=== PATIENT | female | born 1955 | race Two or more races ===

== ENCOUNTER 2019-07-22 06:18 | Day surgery (SDC) | payer BC ==
[~2019-07-22] VITALS: Ht 170.2 cm; Wt 89.2 kg
[~2019-07-22 06:18] MED LIST: AMLO5 PO; ASPI325 PO; ASPI325EC PO; ASPI81EC PO; CITA20 PO; DIAZ10 PO; DICL25ER PO; DOC250 PO; FURO40 PO; FURO80 PO; Ferrous Sulfat325 M2 PO; GABA100 PO; HYDACE10B PO; HYDCHL12.5 PO; K-Dur20 MEQ; LISHYD2012 PO; LISI20 PO; OXYACE5T PO; Omeprazole20 M1 PO; POTA10T PO; PRAV20 PO; Percocet 5-3251 EACH PO; Prilosec20 MG PO; SULI150 PO; Senna8.6 MG PO; TRAM50 PO; ZESTORETIC 20-121 EA PO
[2019-07-22] MEDS ORDERED: Adipex-P37.5 M1 PO (07:08)
[2019-07-22] MEDS ORDERED: Calcium-Magnes1 EAC6 PO (07:08)
[2019-07-22] MEDS ORDERED: ZESTORETIC 20-121 EA PO (07:08)
[2019-07-22] MEDS ORDERED: Senna8.6 MG PO (07:09)
[2019-07-22] MEDS ORDERED: DOCU100 PO (07:09)
--- NOTE | 2019-07-22 09:15 | NUR ---
07/22/19 0915 KulwinderRenata L DAUGHTER IS AT CHAIRSIDE, PT'S NAUSEA HAS RESOLVED AND SHE IS EATING CRACKERS, SHE HAS BEEN MEDICATED FOR SURGICAL SITE PAIN (SEE VS RECORD FOR DOSES AND TIMES).
== END 2019-07-22 09:54 | disposition home or self-care (01) ==
LOC: ORSCSDS 06:18
PROVIDERS: Orthopaedic Surgery
PROC: 0LX50ZZ Transfer Right Lower Arm and Wrist Tendon, Open Approach (ICD-10-PCS; principal; 2019-07-22 07:30)
PROC: 0LX70ZZ Transfer Right Hand Tendon, Open Approach (ICD-10-PCS; principal; 2019-07-22 07:30)
PROC: 01N50ZZ Release Median Nerve, Open Approach (ICD-10-PCS; principal; 2019-07-22 07:30)
DX: G56.01 Carpal tunnel syndrome, right upper limb (principal); M18.11 Unilateral primary osteoarthritis of first carpometacarpal joint, right hand; I10 Essential (primary) hypertension; G47.33 Obstructive sleep apnea (adult) (pediatric); Z79.899 Other long term (current) drug therapy
CPT/HCPCS: A9270-GY; C1713; J0690; J1100; J1885; J2250; J2405; J2704; J2765; J2795; J3010; J7120

== ENCOUNTER 2022-08-17 08:18 | Day surgery (SDC) | payer MEDICARE, BC ==
[~2022-08-17] VITALS: Ht 172.7 cm; Wt 99.5 kg
[~2022-08-17 08:18] MED LIST changes: +ACETAMINOPHEN PM PO; +Adipex-P37.5 M1 PO; +Calcium-Magnes1 EAC6 PO; +DOCU100 PO; +GABA300 PO; +PANT40 PO; +VITAMIN B122500 MC1 PO
== END 2022-08-17 10:36 | disposition home or self-care (01) ==
LOC: ORSCSDS 08:18
PROVIDERS: Surgery
PROC: 0DB68ZX Excision of Stomach, Via Natural or Artificial Opening Endoscopic, Diagnostic (ICD-10-PCS; principal; 2022-08-17 09:45)
PROC: 0DB98ZX Excision of Duodenum, Via Natural or Artificial Opening Endoscopic, Diagnostic (ICD-10-PCS; principal; 2022-08-17 09:45)
DX: K21.9 Gastro-esophageal reflux disease without esophagitis (principal); R10.11 Right upper quadrant pain; G47.33 Obstructive sleep apnea (adult) (pediatric); I12.9 Hypertensive chronic kidney disease with stage 1 through stage 4 chronic kidney disease, or unspecified chronic kidney disease; E78.5 Hyperlipidemia, unspecified; N18.9 Chronic kidney disease, unspecified; K44.9 Diaphragmatic hernia without obstruction or gangrene; K29.70 Gastritis, unspecified, without bleeding; F41.9 Anxiety disorder, unspecified; E66.9 Obesity, unspecified; Z68.38 Body mass index [BMI] 38.0-38.9, adult; Z79.899 Other long term (current) drug therapy
CPT/HCPCS: 88305; 88341; 88342; J0330; J0461; J2405; J2704; J7120

== ENCOUNTER 2022-11-10 06:51 | Day surgery (SDC) | payer MEDICARE, BC ==
[~2022-11-10] VITALS: Ht 170.2 cm; Wt 100.4 kg
[~2022-11-10 06:51] MED LIST changes: +Lisinopril-Hct1 EAC4 PO; +OMEP20ER PO; +PEPCID20 MG PO; +SUCR1 PO; +ZYRTEC10 M2 PO
--- NOTE | 2022-11-10 12:05 | NUR ---
Discharge instructions reviewed with patient. Patient verbalizes understanding. Copy given to patient to take home. Dressing to procedure site clean, dry, intact with no visible drainage, swelling, erythema or bruising noted. Discharged via wheelchair to private car for ride home.
== END 2022-11-10 12:06 | disposition home or self-care (01) ==
LOC: ORSCMMR 06:51 → ORD 08:45 → ORSCMMR 08:45
PROVIDERS: Surgery
PROC: 0FT44ZZ Resection of Gallbladder, Percutaneous Endoscopic Approach (ICD-10-PCS; principal; 2022-11-10 10:00)
DX: K80.10 Calculus of gallbladder with chronic cholecystitis without obstruction (principal); I12.9 Hypertensive chronic kidney disease with stage 1 through stage 4 chronic kidney disease, or unspecified chronic kidney disease; N18.9 Chronic kidney disease, unspecified; G47.33 Obstructive sleep apnea (adult) (pediatric); K21.9 Gastro-esophageal reflux disease without esophagitis; Z79.899 Other long term (current) drug therapy
CPT/HCPCS: 74300; 88304; A9270; C1729; J0690; J1100; J1885; J2405; J2704; J2795; J3010; J7120

== ENCOUNTER → 2023-02-28 | Outpatient (CLI) | payer MEDICARE, BC | END | disposition home or self-care (01) | LOC: LAB SHORT 09:30 → LAB 09:30 | DX: L82.1 Other seborrheic keratosis (principal) | CPT/HCPCS: 88305 ==

== ENCOUNTER → 2024-01-02 | Outpatient (CLI) | payer MEDICARE, BC ==
[2024-01-02 09:42] LABS: BASOPHILS ABSOLUTE AUTO 0.04 K/mm3 (0.00-0.23); BASOPHILS PERCENT AUTO 1 % (0-2); EOSINOPHILS ABSOLUTE AUTO 0.07 K/mm3 (0.00-0.68); EOSINOPHILS PERCENT AUTO 2 % (0-6); Hematocrit 37.3 % (33.0-51.0); Hemoglobin 12.4 g/dL (11.5-16.0); IMMATURE GRAN ABSOLUTE AUTO 0.01 K/mm3 (0.00-0.10); IMMATURE GRAN PERCENT AUTO 0 % (0-1); LYMPHOCYTES ABSOLUTE AUTO 1.43 K/mm3 (0.84-5.20); LYMPHOCYTES PERCENT AUTO 43 % (21-46); MONOCYTES ABSOLUTE AUTO 0.22 K/mm3 (0.16-1.47); MONOCYTES PERCENT AUTO 7 % (4-13); Mean Corpuscular HGB 29.6 pg (26.0-34.0); Mean Corpuscular HGB Conc 33.2 g/dL (31.5-36.5); Mean Corpuscular Volume 89 fL (80-100); Mean Platelet Volume 9.4 fL (9.1-12.4); NEUTROPHILS ABSOLUTE AUTO 1.53 K/mm3 (1.96-9.15); NEUTROPHILS PERCENT AUTO 46 % (41-73); Platelet Count 240 K/mm3 (150-400); RDW Coefficient Variation 14.1 % (11.7-14.2); RDW Standard Deviation 45.6 fL (35.1-46.3); Red Blood Cell Count 4.19 M/mm3 (3.80-5.20)
[2024-01-02 10:18] LABS: Alanine Aminotransfer (ALT/SGP 12 U/L (12-78); Albumin, Blood 3.8 g/dL (3.4-5.0); Albumin/Globulin Ratio 1.2 (0.8-1.8); Alk Phos 69 U/L (50-136); Anion Gap 0 mmol/L (6-16); Aspartate Aminotrans (AST/SGOT 14 U/L (12-37); Bilirubin, Total 0.5 mg/dL (0.1-1.0); Blood Urea Nitrogen 16 mg/dL (8-24); Bun/Creatinine Ratio 18.4 (12.0-20.0); CHOL/HDL RATIO 1.9; CO2, Blood 31 mmol/L (21-32); Calcium, Blood 9.4 mg/dL (8.5-10.1); Chloride, Blood 108 mmol/L (98-108); Cholesterol 144 mg/dL (50-200); Creatinine, Blood 0.87 mg/dL (0.40-1.00); Globulin, Blood 3.1 g/dL (2.2-4.0); Glomerular Filtration Rate 73 (60-); Glucose, Blood 87 mg/dL (70-99); HDL Cholesterol 75 mg/dL (>39); LDL/HDL RATIO 0.8; Low Density Lipoprotein Chol 57 mg/dL (0-110); Potassium, Blood 3.7 mmol/L (3.5-5.5); Sodium, Blood 139 mmol/L (136-145); Total Protein, Blood 6.9 g/dL (6.4-8.2); Triglycerides 62 mg/dL (30-160); Very Low Density Lipoprot Chol 12 mg/dL (6-32)
== END ==
LOC: LAB SHORT 07:51
PROVIDERS: Family Medicine
DX: I12.9 Hypertensive chronic kidney disease with stage 1 through stage 4 chronic kidney disease, or unspecified chronic kidney disease (principal); N18.2 Chronic kidney disease, stage 2 (mild); D63.1 Anemia in chronic kidney disease
CPT/HCPCS: 36415; 80053; 80061; 85025

== ENCOUNTER 2024-10-06 09:07 | Day surgery (SDC) | payer MEDICARE, BC ==
[~2024-10-06] VITALS: Ht 172.7 cm; Wt 87.4 kg
[2024-10-06] VITALS (16 sets, daily range): BP systolic 134–188; BP diastolic 68–86
[~2024-10-06 09:07] MED LIST changes: +CeFAZolin Sodium 2,000 MG VIAL ONE; +CeFAZolin Sodium 2,000 MG in NS 100 ML IV SCH; +LOSA50 PO; +Lactated Ringer's 1,000 ML IV SCH
[2024-10-06] MEDS ORDERED: Acetaminophen 500 MG Tab PO ONE (09:20)
[2024-10-06] MEDS ORDERED: Lidocaine HCl 2% 20 ML MDV ONE (09:33)
[2024-10-06] MEDS ORDERED: Ondansetron HCl 2 MG / ML 2ML Vial ONE (09:33)
[2024-10-06] MEDS ORDERED: Metoclopramide HCl 5MG / ML 2ML Vial ONE (09:33)
[2024-10-06] MEDS ORDERED: propofoL 20 ML IV ONE (09:34)
[2024-10-06] MEDS ORDERED: FentaNYL Citrate 50 MCG/ML 2 ML Injection ONE ×2 (09:37→11:53)
--- NOTE | 2024-10-06 09:46 | NUR ---
History, Chart, Medications and Allergies reviewed before start of procedure. Pre-Op teaching done. Pt verbalizes understanding. Patient confirms NPO status and agrees with scheduled surgery. PT BELONGINGS PLACED UNDER BED. GLASSES PLACED IN PACU. DENTURE CUP SENT WITH CHANGE BOOTH ATTENDANT, PT WANTS "TO KEEP DENTURES IN UNTIL LAST MINUTE."
[2024-10-06] MEDS ORDERED: Midazolam HCl 1MG / ML 2ML Vial IV ONE (09:50)
[2024-10-06] MEDS ORDERED: Lidocaine 1%-Epineph 1:100000 20 ML MDV INJ ONE ×2 (10:21)
[2024-10-06] MEDS ORDERED: Sugammadex Sodium 200 MG/2ML SDV (100 MG/ML) ONE (11:11)
[2024-10-06] MEDS ORDERED: DiphenhydrAMINE HCL 25 MG Cap PO PRN (11:35)
[2024-10-06] MEDS ORDERED: Naloxone HCl 0.4MG / ML 1ML Vial IV PRN (11:35)
[2024-10-06] MEDS ORDERED: OxyCODONE HCL 5 MG TAB PO PRN (11:35)
[2024-10-06] MEDS ORDERED: Simethicone 80 MG Chew PO PRN (11:35)
[2024-10-06] MEDS ORDERED: Acetaminophen 500 MG Tab PO PRN (11:35)
[2024-10-06] MEDS ORDERED: Ondansetron HCl 2 MG / ML 2ML Vial IV PRN (11:35)
[2024-10-06] MEDS ORDERED: FLU VACC TS2024-25(6MOS UP)/PF 45 MCG/0.5 ML SYRINGE IM SCH (11:40)
[2024-10-06] MEDS ORDERED: Metoclopramide HCl 5MG / ML 2ML Vial IV PRN (11:40)
[2024-10-06] MEDS ORDERED: HYDROmorphone HCl/Pf 1MG SYR IV PRN (11:40)
[2024-10-06] MEDS ORDERED: Ondansetron 4 MG TAB PO PRN (11:40)
[2024-10-06] MEDS ORDERED: Metoclopramide HCl 10 MG Tab PO PRN (11:40)
[2024-10-06] MEDS ORDERED: Lactated Ringer's 1,000 ML IV SCH (11:45)
[2024-10-06] MEDS ORDERED: Ketorolac Tromethamine 15mg Vial IV PRN (12:05)
[2024-10-06] MEDS ORDERED: Prochlorperazine Edisylate 10 mg Vial ONE (12:09)
--- NOTE | 2024-10-06 12:47 | NUR ---
ARRIVAL TO UNIT PATIENT TRANSFERRED TO UNIT FROM PACU AT APPROX 1235. PATIENT ALERT AND ORIENTED X4. COMMUNICATING NEEDS EFFECTIVELY. VSS. PLACED ON 2L VIA NC SATs MAINTAINING 87-89% ON ROOM AIR. S/P A & P WITH SLING - DENIES PAIN BUT DOES REPORT A "BURNING" SENSATION. ICE PACK IN PLACE. DENIES NAUSEA - SMALL SNACK AND WATER PROVIDED. LR INFUSING PER EMAR. SUE CATHETER IN PLACE. CALL LIGHT IN REACH. FAMILY AT BEDSIDE.
[2024-10-06] MEDS ORDERED: ACET500 PO (14:34)
[2024-10-06] MEDS ORDERED: IBUP600 PO (14:35)
[2024-10-06] MEDS ORDERED: OXAYDO5 M2 PO (14:35)
--- NOTE | 2024-10-06 14:55 | NUR ---
DISCHARGE NOTE NO ACUTE CHANGES SINCE PREVIOUS DOCUMENTATION. VSS. SBP 140s-160s. PATIENT W/ HX OF HTN - TAKES PO NORVASC AND COZAAR FOR MANAGEMENT. DENIES CHEST PAIN, PRESSURE. TOLERATING ROOM AIR, SATs >90%. RR EVEN, UNLABORED. S/P A&P WITH SLING - PAIN TOLERABLE, TOLERATING PO INTAKE. SUE REMOVED - VOIDING. POST VOID BLADDER SCAN SHOWING <100ML. MINIMAL VAGINAL BLEEDING - PAD IN PLACE. DC ORDERED BY MD RICHTER. IV REMOVED. DC EDUCATION PROVIDED - PATIENT STATES UNDERSTANDING. PATIENT TRANSFERRED TO PERSONAL VEHICLE VIA WHEELCHAIR AT APPROX 1455. PERSONAL BELONGINGS WITH PATIENT.
[2024-10-06] MEDS ORDERED: Losartan Potassium 50 MG Tab PO SCH (21:00)
[2024-10-07] MEDS ORDERED: Pantoprazole Sodium 40 MG Tab PO SCH (06:00)
[2024-10-07] MEDS ORDERED: AmLODIPine Besylate 5 MG Tab PO SCH (09:00)
[2024-10-07] MEDS ORDERED: Loratadine 10 MG Tab PO SCH (09:00)
== END 2024-10-06 15:08 | disposition home or self-care (01) ==
LOC: ORSCMMR 09:07 → ORD 11:45 → SURS 12:28 → ORSCMMR 15:08
DX: N81.89 Other female genital prolapse (principal); N39.3 Stress incontinence (female) (male); I10 Essential (primary) hypertension; Z79.899 Other long term (current) drug therapy
CPT/HCPCS: A9270; C1771; J0690; J0780; J2250; J2405; J2704; J2765; J3010; J7120

== ENCOUNTER → 2025-01-07 | Outpatient (CLI) | payer MEDICARE, BC ==
[~2025-01-07] MED LIST changes: +ACET500 PO; -CeFAZolin Sodium 2,000 MG VIAL ONE; -CeFAZolin Sodium 2,000 MG in NS 100 ML IV SCH; +IBUP600 PO; -Lactated Ringer's 1,000 ML IV SCH; +OXAYDO5 M2 PO
[2025-01-07 10:31] LABS: Source, Urine Clean Catch
[2025-01-07 13:07] LABS: Appearance, Urine Clear (Clear); Bilirubin, Urine Neg (Neg); Blood, Urine Neg (Neg); Color, Urine Yellow (P-Yellow); Glucose Qualitative, Urine Neg (Neg); Ketones, Urine Neg (Neg); Leukocyte Esterase, Urine 1+ (Neg); Nitrite, Urine Neg (Neg); Protein, Urine Neg (Neg); Specific Gravity, Urine 1.015 (1.003-1.022); Urobilinogen, Urine NORM (Normal); pH, Urine 6.5 (5.0-8.0)
[2025-01-07 13:33] LABS: Hyaline Casts 0-2 /lpf (0-2); Red Blood Cells, Urine 0-2 /hpf (0-2); Squamous Epithelial Cells Rare /hpf (Few); White Blood Cells, Urine 0-2 /hpf (0-5)
[2025-01-07 13:34] LABS: Bacteria Rare /hpf; Mucus Light (0-Heavy)
== END ==
LOC: LAB SHORT 10:28 → LAB 10:28
PROVIDERS: Obstetrics & Gynecology
DX: R32 Unspecified urinary incontinence (principal)
CPT/HCPCS: 81001; 87086

== ENCOUNTER → 2025-01-14 | Outpatient (CLI) | payer MEDICARE, BC ==
[2025-01-14 09:11] LABS: Source, Urine Clean Catch
[2025-01-14 10:45] LABS: Appearance, Urine Clear (Clear); Bilirubin, Urine Neg (Neg); Blood, Urine 1+ (Neg); Color, Urine Yellow (P-Yellow); Glucose Qualitative, Urine Neg (Neg); Ketones, Urine Neg (Neg); Leukocyte Esterase, Urine 1+ (Neg); Nitrite, Urine Neg (Neg); Protein, Urine 1+ (Neg); Urobilinogen, Urine NORM (Normal)
[2025-01-14 11:00] LABS: Mucus Light (0-Heavy); Squamous Epithelial Cells Mod /hpf (Few)
[2025-01-14 11:01] LABS: Bacteria Many /hpf
== END ==
LOC: LAB SHORT 09:08 → LAB 09:08
PROVIDERS: Obstetrics & Gynecology
DX: R32 Unspecified urinary incontinence (principal)
CPT/HCPCS: 81001; 87086

== ENCOUNTER 2025-08-02 03:11 | Emergency (ER) | payer MEDICARE, BC ==
[~2025-08-02] VITALS: Ht 172.7 cm; Wt 84.4 kg
[2025-08-02 03:57] VITALS: BP 172/104
[2025-08-02 04:53] LABS: BASOPHILS ABSOLUTE AUTO 0.05 K/mm3 (0.00-0.23); BASOPHILS PERCENT AUTO 1 % (0-2); EOSINOPHILS ABSOLUTE AUTO 0.08 K/mm3 (0.00-0.68); EOSINOPHILS PERCENT AUTO 1 % (0-6); Hematocrit 37.2 % (33.0-51.0); Hemoglobin 12.6 g/dL (11.5-16.0); IMMATURE GRAN ABSOLUTE AUTO 0.01 K/mm3 (0.00-0.10); IMMATURE GRAN PERCENT AUTO 0 % (0-1); LYMPHOCYTES ABSOLUTE AUTO 1.68 K/mm3 (0.84-5.20); LYMPHOCYTES PERCENT AUTO 30 % (21-46); MONOCYTES ABSOLUTE AUTO 0.40 K/mm3 (0.16-1.47); MONOCYTES PERCENT AUTO 7 % (4-13); Mean Corpuscular HGB Conc 33.9 g/dL (31.5-36.5); Mean Corpuscular Volume 88 fL (80-100); NEUTROPHILS ABSOLUTE AUTO 3.41 K/mm3 (1.96-9.15); NEUTROPHILS PERCENT AUTO 61 % (41-73); NRBC ABSOLUTE 0.00 K/mm3 (0.00-0.02); NRBC Auto 0.0 /100 WBC (0.0-0.2); Platelet Count 251 K/mm3 (150-400); RDW Coefficient Variation 13.8 % (11.7-14.2); RDW Standard Deviation 44.7 fL (35.1-46.3)
[2025-08-02 05:17] LABS: Alanine Aminotransfer (ALT/SGP 23.0 U/L (12-78); Albumin, Blood 3.8 g/dL (3.4-5.0); Albumin/Globulin Ratio 1.2 (0.8-1.8); Anion Gap 6.0 mmol/L (3-11); Aspartate Aminotrans (AST/SGOT 19.0 U/L (12-37); Bilirubin, Total 0.2 mg/dL (0.1-1.0); Blood Urea Nitrogen 29.0 mg/dL (8-24); CO2, Blood 29.0 mmol/L (21-32); Calcium, Blood 9.0 mg/dL (8.5-10.1); Chloride, Blood 107.0 mmol/L (98-108); Creatinine, Blood 0.88 mg/dL (0.40-1.00); Globulin, Blood 3.1 g/dL (2.2-4.0); Glucose, Blood 93.0 mg/dL (70-99); Potassium, Blood 4.0 mmol/L (3.5-5.5); Sodium, Blood 138.0 mmol/L (136-145); Total Protein, Blood 6.9 g/dL (6.4-8.2)
[2025-08-02] MEDS ORDERED: BISA10S PR (08:56)
== END 2025-08-02 09:21 | disposition home or self-care (01) ==
LOC: ER 03:11
PROVIDERS: Emergency Medicine
DX: K59.00 Constipation, unspecified (principal); I10 Essential (primary) hypertension; Z98.890 Other specified postprocedural states; Z79.899 Other long term (current) drug therapy
CPT/HCPCS: 74177; 80053; 85025; 99284-25; A9270; Q9967

== ENCOUNTER 2025-09-04 08:42 | Day surgery (SDC) | payer MEDICARE, BC ==
[2025-09-04] VITALS (16 sets, daily range): BP systolic 117–190; BP diastolic 69–93
[~2025-09-04] VITALS: Ht 167.6 cm; Wt 85.3 kg
[~2025-09-04 08:42] MED LIST changes: +BISA10S PR; +Colace100 MG PO; +Lopressor 25 mg25 MG PO; +POLY500 PO; +SOLI5
--- NOTE | 2025-09-04 09:21 | NUR ---
Discharge instructions reviewed with patient. Patient verbalizes understanding. Copy given to patient to take home. Patient confirms NPO status and agrees with scheduled surgery. Patient states colon prep results clear.
[2025-09-04] MEDS ORDERED: Midazolam HCl 1MG / ML 2ML Vial ONE (09:57)
--- NOTE | 2025-09-04 10:19 | NUR ---
09/04/25 [id number] Nimisha Marvin ENDO 1 @ 1013- CONFIRMED AND REVIEWED H&P, MEDCICATIONS, ALLERGIES, MEDICAL HISTORY, RESPIRATORY HISTORY, VITAL SIGNS, 3-LEAD EKG, CONSENTS, AND PHYSICIAN ORDERS. PATIENT CONFIRMS NPO STATUS AND AGREES WITH SCHEDULED PROCEDURE. MONITOR INTACT WITH CONTINUOUS PULSE OXIMETRY, CAPNOGRAPHY, 3-LEAD EKG, INTERMITTENT BP. SUPPLEMENTAL O2 TO BE TITRATED THROUGHOUT PROCEDURE TO MAINTAIN O2 SATURATION ABOVE 90%. PATIENT DETERMINED TO BE ASA APPROPRIATE FOR PROPOFOL SEDATION PRIOR TO START OF PROCEDURE BY .MALLAMPATI CLASS 3 AIRWAY: VISUALIZATION OF ONLY THE BASE OF THE UVULA.
--- NOTE | 2025-09-04 11:10 | NUR ---
TO STEP POST PROCEDURE. DENIES PAIN, NAUSEA, SOB. SHAMEKA PO WELL. PT/HISTORIC INTERPRETER VERBALIZED UNDERSTANDING OF DC INSTRUCTIONS. DC'D IV INTACT. DC'D VIA WC TO PRIVATE CAR WITH HISTORIC INTERPRETER.
== END 2025-09-04 11:05 | disposition home or self-care (01) ==
LOC: ORSCMMR 08:42 → ORD 10:00 → ORSCMMR 11:05
PROVIDERS: Internal Medicine Gastroenterology
PROC: 0DJD8ZZ Inspection of Lower Intestinal Tract, Via Natural or Artificial Opening Endoscopic (ICD-10-PCS; principal; 2025-09-04 10:00)
DX: K62.5 Hemorrhage of anus and rectum (principal); K59.00 Constipation, unspecified; K57.30 Diverticulosis of large intestine without perforation or abscess without bleeding; Z86.0101 Personal history of adenomatous and serrated colon polyps; Z80.0 Family history of malignant neoplasm of digestive organs; I10 Essential (primary) hypertension; F41.1 Generalized anxiety disorder; G47.30 Sleep apnea, unspecified; K21.9 Gastro-esophageal reflux disease without esophagitis; Z79.899 Other long term (current) drug therapy
CPT/HCPCS: J0461; J2250; J2704; J7120